=== PATIENT | male | born 1960 | race Caucasian/White ===

== ENCOUNTER 2020-05-03 12:18 | Day surgery (SDC) | payer OTHER ==
[~2020-05-03 12:18] MED LIST: Metoclopramide 10 MG/2 ML SDV IV PRN; Sodium Chloride 0.9% 1,000 ML IV SCH
[2020-05-03] MEDS ORDERED: Propofol 1,000 MG/100 ML SDV ONE (15:00)
--- NOTE | 2020-05-03 16:55 | OR ---
DATE OF OPERATION: 05/03/2020 SURGEON: Kevin Hyde MD PREOPERATIVE DIAGNOSIS: Surveillance colonoscopy. POSTOPERATIVE DIAGNOSIS: Surveillance colonoscopy. PROCEDURE: Colonoscopy. ANESTHESIA: MAC. ESTIMATED BLOOD LOSS: None. COMPLICATIONS: None. INDICATION FOR THE PROCEDURE: The patient is a 60-year-old male here today for colonoscopy. Last scope was approximately 10 years ago, was normal per patient. Denies any change in bowel habits since that time. Supposedly had polyps on previous colonoscopy before that. DESCRIPTION OF PROCEDURE: Informed consent was obtained from the patient. The patient was taken to the operating room and placed on table in left lateral decubitus position. Monitored anesthesia care was administered. Digital rectal exam performed and was normal. Colonoscope then advanced through the anus directed toward the cecum. Cecum was reached and identified by ileocecal valve and palpation. Colonoscope then slowly withdrawn. No polyps, no masses. There were no areas of ischemia or inflammation identified. Did have some mild small diverticulosis in the sigmoid colon. Rectum was otherwise unremarkable. Colonoscope then withdrawn. FINDINGS: Mild sigmoid diverticulosis. RECOMMENDATIONS: We would recommend repeat screening colonoscopy in 10 years. LEONEL /[id number]
== END 2020-05-03 15:43 | disposition home or self-care (01) ==
LOC: LB.SDS 12:18
PROVIDERS: ATTEND Surgery
DX: Z12.11 Encounter for screening for malignant neoplasm of colon (principal); Z98.890 Other specified postprocedural states; K57.30 Diverticulosis of large intestine without perforation or abscess without bleeding
CPT/HCPCS: 82962; J2704; J7030